=== PATIENT | female | born 1985 | race Caucasian/White ===

== ENCOUNTER 2019-10-04 05:34 | Emergency (ER) | payer BC ==
[~2019-10-04] VITALS: Ht 170.2 cm; Wt 75.0 kg
[2019-10-04] MEDS ORDERED: oseltamivir phos 75mg capsule PO ONE (06:15)
[2019-10-04] MEDS ORDERED: ibuprofen tablet 400 MG TABLET PO ONE (06:15)
[2019-10-04] MEDS ORDERED: TAM75C PO (06:18)
[2019-10-04] MEDS ORDERED: AMOX-422 PO (06:19)
[2019-10-04] MEDS ORDERED: ibuprofen 200mg tablet PO ONE (06:20)
[2019-10-04 06:52] VITALS: BP 118/68
== END 2019-10-04 06:54 | disposition home or self-care (01) ==
LOC: ER 05:35
DX: J11.1 Influenza due to unidentified influenza virus with other respiratory manifestations (principal); R50.9 Fever, unspecified
CPT/HCPCS: 87502; 87503; 99283